=== PATIENT | female | born 1975 | race Caucasian/White ===

== ENCOUNTER 2017-11-22 09:10 | Emergency (ER) | payer OTHER ==
--- NOTE | 2017-11-22 09:33 | UC ---
UC General HPI - HPI Summary HPI Summary: 09:25 not in room 09:35 not in room. - History of Current Complaint Stated Complaint: ARM SWELLING Time Seen by Provider: 11/22/17 09:21 Hx Last Menstrual Period: IUD - Allergy/Home Medications Allergies/Adverse Reactions: Allergies Allergy/AdvReac Type Severity Reaction Status Date / Time No Known Allergies Allergy Verified 04/25/15 12:44 PMH/Surg Hx/FS Hx/Imm Hx - Surgical History Surgical History: None - Family History Known Family History: Positive: Cardiac Disease, Hypertension - Social History Alcohol Use: Weekly Substance Use Type: None Smoking Status (MU): Never Smoked Tobacco Discharge - Discharge Plan Referrals: No Primary Care Phys,NOPCP [Primary Care Provider] -
== END 2017-11-22 09:39 | disposition left against medical advice (07) ==
LOC: UCEAST 09:10
DX: M79.89 Other specified soft tissue disorders (principal); Z53.21 Procedure and treatment not carried out due to patient leaving prior to being seen by health care provider